=== PATIENT | female | born 1970 | race Asian ===

== ENCOUNTER 2021-09-21 21:30 | Emergency (ER) | payer OTHER ==
[2021-09-21 21:37] VITALS: BP 107/71; PULSE 85; TEMP 98.3; BMI 44.2
[2021-09-21] MEDS ORDERED: ACETAMINOPHEN 1000 MG/100 ML BAG IVPB ONE (22:12)
[2021-09-21] MEDS ORDERED: ACETAMINOPHEN INJECTION 100 ML IVPB ONE (22:33)
[2021-09-21 22:56] LABS: EOS % 1.7 % (0-4.5); HEMATOCRIT 40.2 % (32.4-45.2); HEMOGLOBIN 13.5 GM/dL (10.7-15.3); LYMPH % 27.9 % (8-40); MCHC 33.6 g/dl (32.0-36.0); MEAN CELL VOLUME 80.1 fl (80-96); MEAN PLT VOLUME 7.9 fl (7.5-11.1); MONO % 7.8 % (3.8-10.2); NEUT % 61.6 % (42.8-82.8); PLATELET COUNT 232 10^3/uL (134-434); RBC 5.01 M/mm3 (3.60-5.2); RDW 14.7 % (11.6-15.6); URINE APPEARANCE CLEAR; URINE BILIRUBIN NEGATIVE (NEGATIVE); URINE COLOR YELLOW; URINE GLUCOSE (UA) NEGATIVE (NEGATIVE); URINE KETONE TRACE (NEGATIVE); URINE LEUK ESTERASE NEGATIVE (NEGATIVE); URINE NITRITE NEGATIVE (NEGATIVE); URINE PROTEIN NEGATIVE (NEGATIVE); WHITE BLOOD COUNT 7.7 K/mm3 (4.0-10.0)
[2021-09-21 23:25] LABS: ALBUMIN 3.7 g/dl (3.4-5.0); CALCIUM 8.6 mg/dL (8.5-10.1)
[2021-09-21 23:26] LABS: BLOOD UREA NITROGEN 14.9 mg/dL (7-18)
[2021-09-21 23:28] LABS: CREATININE 0.9 mg/dL (0.55-1.3)
[2021-09-21 23:30] LABS: BILIRUBIN,TOTAL 0.4 mg/dL (0.2-1); TOT PROT 7.3 g/dl (6.4-8.2)
[2021-09-22] MEDS ORDERED: KETOROLAC TROMETHAMINE 30 MG/1 ML VIAL IVPUSH ONE (00:43)
== END 2021-09-22 01:07 | disposition home or self-care (01) ==
LOC: JER 21:30
PROC: 3E0333Z Introduction of Anti-inflammatory into Peripheral Vein, Percutaneous Approach (ICD-10-PCS; principal; 2021-09-21)
DX: K65.9 Peritonitis, unspecified (principal)
CPT/HCPCS: 36415; 74177-TC; 80053; 81003; 83690; 85025; 87086; 99285-25; Q9967